=== PATIENT | male | born 1965 | race Caucasian/White ===

== ENCOUNTER 2016-12-19 21:42 | Emergency (ER) | payer BC ==
--- NOTE | 2016-12-19 21:52 | Emergency Department Record ---
History of Present Illness - General Chief complaint: Dental Stated complaint: DENTAL PAIN Time Seen by Provider: 12/19/16 21:50 Source: Patient Mode of Arrival: Ambulatory Limitations: No limitations - History of Present Illness Initial comments: The patient is here due to dental pain for one day. He has a long hx of poor dentition and now all his teeth seem to be falling out. He has a dentist appointment in 2 weeks in [place]. He denies any other issues. MD complaint: Tooth pain Onset/Timin -: Days(s) Severity: Moderate Severity scale (1-10): 10 Quality: Aching Consistency: Constant Improves with: None Context- Dental: History of dental caries, Poor dental care - Related Data Previous Rx's Medication Instructions Recorded Aspirin [Ecotrin] 81 mg PO DAILY #90 tablet. 07/05/15 Blood Sugar Diagnostic [Glucose 1 each MC DAILY #30 strip 07/05/15 Test Strip] Blood-Glucose Meter, Drum-Type 1 each MC ONCE #1 kit 07/05/15 [Accu-Chek] Lancets [Accu-Chek] 1 each MC [id number] #30 each 07/05/15 Hydrocodone/Acetaminophen [[place] 1 - 2 each PO QID #20 tablet 12/19/16 5-325 Tablet] Penicillin V Potassium 500 mg PO QID #28 tablet 12/19/16 Allergies Allergy/AdvReac Type Severity Reaction Status Date / Time No Known Drug Allergies Allergy Verified 12/19/16 21:49 Travel Screening - Travel/Exposure Within Last 30 Days Have you traveled within the last 30 days?: No - Travel/Exposure Within Last Year Have you traveled outside the [place] in the last year?: No - Additonal Travel Details Have you been exposed to anyone with a communicable illness?: No - Travel Symptoms Symptom Screening: None Review of Systems Constitutional: Denies: Chills, Fever Eyes: Denies: Eye discharge ENT: Denies: Congestion Respiratory: Denies: Cough Past Medical History - SOCIAL HISTORY Smoking Status: Former smoker Alcohol Use: None Drug Use: None - RESPIRATORY Hx Respiratory Disorders: No - CARDIOVASCULAR Hx Chest Pain: Yes Hx Heart Attack: Yes Comment:: CABG - NEURO Hx Neuro Disorders: No - GI Hx GI Disorders: No - Hx Genitourinary Disorders: No - ENDOCRINE Hx Diabetes: Yes Hx Thyroid Disease: No - MUSCULOSKELETAL Hx Musculoskeletal Disorders: No - PSYCH Hx Psych Problems: No - HEMATOLOGY/ONCOLOGY Hx Hematology/Oncology Disorders: No Family Medical History Any Significant Family History?: Yes Physical Exam - General General Appearance: Alert, Oriented x3, Cooperative, No acute distress - Head Head exam: Atraumatic, Normocephalic, Normal inspection - Eye Eye exam: Normal appearance, PERRL - ENT Teeth exam: Dental caries, Other (There is extremely poor dentition with most of the teeth rotted out. The pain is above where tooth # 4 was. There is no gum line swelling or abscess but there is a very small draining sinus tract present at the gum line.). negative: Normal inspection, Gingival enlargement Course Vital Signs 12/19/16 21:43 Temperature 97.5 F L Pulse Rate 77 Respiratory 16 Rate Blood Pressure 159/93 Pulse Ox 97 - Reevaluation(s) Reevaluation #1: Procedure Note: Dental Apical block. The area above the # 4 tooth was anesth. with 1 cc Lido 1% with Sensoricaine. Good anesth. was provided and there were no complications. The patient felt much better after the procedure. 12/19/16 22:24 Disposition Disposition: Discharge Clinical Impression: Pain, dental Disposition: Home, Self-Care Condition: (1) Good Instructions: Dental Abscess (ED) Additional Instructions: Please take the [facility] [place] as directed. Please see the Dentist DAGOBERTO. Prescriptions: Hydrocodone/Acetaminophen [[place] 5-325 Tablet] 1 - 2 each PO QID #20 tablet Penicillin V Potassium 500 mg PO QID #28 tablet Forms: Patient Portal Access Time of Disposition: 22:23
[2016-12-19] MEDS ORDERED: PENICILLIN V POTASSIUM 250 MG TAB PO ONE (21:55)
[2016-12-19] MEDS ORDERED: HYDROCODONE/APAP 5/325MG TABLET PO ONE ×2 (21:56→22:21)
== END 2016-12-19 22:30 | disposition home or self-care (01) ==
LOC: ER 21:42
DX: K02.9 Dental caries, unspecified (principal)
CPT/HCPCS: 64400; 99283

== ENCOUNTER 2017-06-17 19:10 | Emergency (ER) | payer BC ==
[2017-06-17] MEDS ORDERED: ASPIRIN 81 MG CHEWABLE TABLET PO ONE (19:17)
[2017-06-17] MEDS: NITROGLYCERIN 0.4MG SL TABLET #25 BTL SL PRN ×3 (19:21→19:37)
--- NOTE | 2017-06-17 19:24 | Emergency Department Record ---
History of Present Illness - General Chief Complaint: Chest Pain Stated Complaint: CHEST PAIN Time Seen by Provider: 06/17/17 19:18 Source: Patient, Family (spouse) - History of Present Illness Initial Comments: Left anterior chest pain began approximately 30 minutes prior to arrival when he was at rest, estimated at 6:45 p.m. He states it radiated to the back and is associated with SOB but no nausea, vomiting, diaphoresis. 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 He saw Dr. Moreland here earlier this week and he says one of his grafts is closed. He has had chest symptoms daily for many months. MD Complaint: Chest pain - Related Data Home Medications Medication Instructions Recorded Confirmed Last Taken Aspirin [Ecotrin] 81 mg PO QPM 06/17/17 06/17/17 Unknown Isosorbide Mononitrate [Imdur] 30 mg PO DAILY 06/17/17 06/17/17 06/17/17 Previous Rx's Medication Instructions Recorded Blood Sugar Diagnostic [Glucose 1 each MC DAILY #30 strip 07/05/15 Test Strip] Blood-Glucose Meter, Drum-Type 1 each MC ONCE #1 kit 07/05/15 [Accu-Chek] Lancets [Accu-Chek] 1 each MC [id number] #30 each 07/05/15 Allergies Allergy/AdvReac Type Severity Reaction Status Date / Time No Known Drug Allergies Allergy Verified 06/17/17 19:13 Review of Systems Reviewed: No additional complaints except as noted below Constitutional: Reports: As per HPI. Denies: Chills, Fever, Malaise, Night sweats, Weakness, Weight change Eyes: Reports: As per HPI. Denies: Eye discharge, Eye pain, Photophobia, Vision change ENT: Reports: As per HPI. Denies: Congestion, Dental pain, Ear pain, Epistaxis , Hearing loss, Throat pain Respiratory: Reports: As per HPI. Denies: Cough, Dyspnea, Hemoptysis, Stridor, Wheezes Cardiovascular: Reports: As per HPI. Denies: Arrhythmia, Chest pain, Dyspnea on exertion, Edema, Murmurs, Orthopnea, Palpitations, Paroxysmal nocturnal dyspnea, Rheumatic Fever, Syncope Endocrine: Reports: As per HPI. Denies: Fatigue, Heat or cold intolerance, Polydipsia, Polyuria Gastrointestinal: Reports: As per HPI. Denies: Abdominal pain, Constipation, Diarrhea, Hematemesis, Hematochezia, Melena, Nausea, Vomiting Genitourinary: Reports: As per HPI. Denies: Dysuria, Frequency, Hematuria, Incontinence, Retention, Testicular pain, Testicular mass, Urgency Musculoskeletal: Reports: As per HPI. Denies: Arthralgia, Back pain, Gout, Joint swelling, Myalgia, Neck pain Skin: Reports: As per HPI. Denies: Bruising, Change in color, Change in hair/ nails, Lesions, Pruritus, Rash Neurological: Reports: As per HPI. Denies: Abnormal gait, Confusion, Headache, Numbness, Paresthesias, Seizure, Tingling, Tremors, Vertigo, Weakness Psychiatric: Reports: As per HPI. Denies: Anxiety, Auditory hallucinations, Depression, Homicidal thoughts, Suicidal thoughts, Visual hallucinations Hematological/Lymphatic: Reports: As per HPI. Denies: Anemia, Blood Clots, Easy bleeding, Easy bruising, Swollen glands Past Medical History - SOCIAL HISTORY Smoking Status: Former smoker Drug Use: None - RESPIRATORY Hx Respiratory Disorders: No - CARDIOVASCULAR Hx Chest Pain: Yes Hx Heart Attack: Yes Comment:: CABG - NEURO Hx Neuro Disorders: No - GI Hx GI Disorders: No - Hx Genitourinary Disorders: No - ENDOCRINE Hx Diabetes: Yes Hx Thyroid Disease: No - MUSCULOSKELETAL Hx Musculoskeletal Disorders: No - PSYCH Hx Psych Problems: No - HEMATOLOGY/ONCOLOGY Hx Hematology/Oncology Disorders: No Physical Exam - General General Appearance: Alert, Oriented x3, Cooperative, Anxious ("I'm having a heart attack") - Head Head exam: Normal inspection - Eye Eye exam: Normal appearance, PERRL Pupils: Normal accommodation - ENT ENT exam: Normal exam, Mucous membranes moist, Normal external ear exam, Normal orophraynx, TM's normal bilaterally Ear exam: Normal external inspection. negative: External canal tenderness Nasal Exam: Normal inspection. negative: Discharge, Sinus tenderness Mouth exam: Normal external inspection, Tongue normal Teeth exam: Normal inspection. negative: Dental caries Throat exam: Normal inspection. negative: Tonsillar erythema, Tonsillar exudate - Neck Neck exam: Normal inspection, Full ROM. negative: Tenderness - Respiratory Respiratory exam: Normal lung sounds bilaterally. negative: Respiratory distress - Cardiovascular Cardiovascular Exam: Regular rate, Normal rhythm, Normal heart sounds - GI/Abdominal GI/Abdominal exam: Soft, Normal bowel sounds. negative: Tenderness - Rectal Rectal exam: Deferred - exam: Deferred - Extremities Extremities exam: Normal inspection, Full ROM, Normal capillary refill. negative: Calf tenderness, Pedal edema, Tenderness - Back Back exam: Reports: Normal inspection, Full ROM. Denies: Muscle spasm, Rash noted, Tenderness - Neurological Neurological exam: Alert, Normal gait, Oriented X3, Reflexes normal - Psychiatric Psychiatric exam: Normal affect, Normal mood - Skin Skin exam: Dry, Intact, Normal color, Warm Course Vital Signs 06/17/17 19:17 Temperature 98.0 F Pulse Rate [ 92 H Pulse Ox Probe] Respiratory 22 Rate Blood Pressure 154/88 [Right Arm] Pulse Ox 96 - Reevaluation(s) Reevaluation #1: After nitro times 2 and aspirin patient is 2/10 chest pain. 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 06/17/17 19:30 Reevaluation #2: EKG #[address] elevation lead III, [address] depression lateral leads I, AVL, V2- V6. Changed from prior of 06-16-17 06/17/17 19:33 Reevaluation #3: Painfree after nitro times 3. 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 He is asking is stress can cause these symptoms. 06/17/17 19:56 Reevaluation #5: DW Dr. Cote [employer] Supervisor application development team lead for Dr. Moreland who accepts patient in transfer. Patient and spouse aware and in agreement. Patient continues to be pain free. 06/17/17 20:07 Medical Decision Making - Management Options MDM Management: Additional Work-up Planned (e.g. ADM/Transfer/OP Study) ( Transfer to Dr. Cote Cardiology at [facility]) - Data Complexity MDM Data: Labs Ordered and/or Reviewed, X-Ray Ordered and/or Reviewed (Portable CXR: Prior sternotomy changes with no acute cardiopulmonary abnormality per Rad. 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 Cote [facility] Time Discussed w/Accepting Physician: 20:12 Condition: (1) Good Forms: Patient Portal Access Quality - Quality Measures Quality Measures: N/A - Blood Pressure Screening Does Patient Have Any of the Following: No Blood Pressure Classification: Normal BP Reading Systolic Measurement: 116 Diastolic Measurement: 66 Screening for High Blood Pressure: < Normal BP, F/U Not Required > [[id number]]
[2017-06-17 19:26] LABS: BASO % 0.4 % (0-6); EOS % 2.9 % (0-6); GRAN % 48.5 % (47-80); HEMATOCRIT 45.5 % (42.0-52.0); HEMOGLOBIN 16.1 gm/dl (14.0-18.0); LYMPH % 37.1 % (16-45); MEAN CELL VOLUME 81.4 fl (81-97); MEAN CORPUSCULAR HEMOGLOBIN 28.8 pg (27-33); MEAN CORPUSCULAR HGB CONC 35.4 g/dl (32-36); MEAN PLATELET VOLUME 9.3 fl (7.4-10.4); MONO % 11.1 % (0-9); PLATELET COUNT 280 K/uL (130-400); RED BLOOD COUNT 5.59 M/uL (4.40-5.70); WHITE BLOOD COUNT W/O DIFF 9.7 K/uL (4.2-12.2)
[2017-06-17] MEDS ORDERED: MORPHINE SULFATE 5 MG/ML PFS IVP ONE (19:36)
[2017-06-17 19:37] LABS: ANION GAP 10.6 (7-16); BLOOD UREA NITROGEN 15 mg/dL (9-20); CARBON DIOXIDE 26.4 mmol/L (22-30); CREATININE 0.7 mg/dL (0.66-1.25); EST GLOMERULAR FILTRATION RATE > 60 ml/min; GLUCOSE,RANDOM 171 mg/dL (70-110)
[2017-06-17 19:41] LABS: INR 0.95; PARTIAL THROMBOPLASTIN TIME 28.2 SECONDS (24.5-39.1); PROTHROMBIN TIME (PATIENT) 10.3 SECONDS (9.5-12.1)
[2017-06-17 19:42] LABS: D-DIMER 0.26 mg/L FEU (0-0.59)
[2017-06-17 19:57] LABS: TROPONIN I < 0.012 ng/mL (0.00-0.034)
[2017-06-17 20:08] LABS: THYROID STIMULATING HORMONE 3.91 uIU/ml (0.465-4.68)
--- NOTE | 2017-06-18 12:31 | RADIOLOGY REPORT ---
EXAM: CHEST HISTORY: CHEST PAIN. TECHNIQUE: A single view of the chest was obtained. Comparison: None. FINDINGS: The heart is not enlarged. No mediastinal mass. There are post sternotomy changes. No acute infiltrate or vascular congestion. IMPRESSION: 1. POST STERNOTOMY CHANGE. 2. NO ACUTE CARDIAC OR PULMONARY ABNORMALITY. JOB NUMBER: [id number] MTDD
== END 2017-06-17 21:15 | disposition short-term general hospital (02) ==
LOC: ER 19:10
DX: I20.9 Angina pectoris, unspecified (principal); R06.02 Shortness of breath; I10 Essential (primary) hypertension; I25.2 Old myocardial infarction; E11.9 Type 2 diabetes mellitus without complications; Z95.1 Presence of aortocoronary bypass graft; Z87.891 Personal history of nicotine dependence
CPT/HCPCS: 71010; 80048; 84443; 84484; 85025; 85379; 85610; 85730; 93005; 93010; 99285